=== PATIENT | female | born 1995 | race Caucasian/White ===

== ENCOUNTER 2023-11-04 02:17 | Emergency (ER) | payer OTHER, SELFPAY ==
[2023-11-04 02:49] LABS: HEMATOCRIT 42.7 % (36.0-47.0); HEMOGLOBIN 14.8 g/dl (12.0-15.5); MEAN CORPUSCULAR HEMOGLOBIN 34.3 pg (27.0-33.0); MEAN CORPUSCULAR HGB CONC 34.7 g/dl (32.0-36.5); MEAN CORPUSCULAR VOLUME 98.8 fl (80.0-96.0); PLATELET COUNT, AUTOMATED 327 10^3/uL (150-450); RED BLOOD COUNT 4.32 10^6/uL (4.00-5.40); WHITE BLOOD COUNT 11.4 10^3/uL (4.0-10.0)
[2023-11-04] MEDS: LORazepam 2 MG/ML 1ML VIAL IM STA (02:58)
[2023-11-04] MEDS: NICOTINE 21MG/24HR 1 EA TRANSDERMAL TD ONE (02:58)
[2023-11-04 03:09] LABS: AMPHETAMINES LEVEL URINE NEGATIVE (NEGATIVE); BARBITURATES URINE NEGATIVE (NEGATIVE); BENZODIAZEPINES URINE NEGATIVE (NEGATIVE); METHADONE URINE NEGATIVE (NEGATIVE); OPIATES URINE NEGATIVE (NEGATIVE); PHENCYCLIDINE URINE NEGATIVE (NEGATIVE)
[2023-11-04 03:11] LABS: ETHYL ALCOHOL (ETHANOL) 0.213 % (0.000-0.010)
[2023-11-04 03:12] LABS: CANNABINOIDS URINE POSITIVE (NEGATIVE); COCAINE METABOLITE URINE POSITIVE (NEGATIVE); SALICYLATE LEVEL < 3.0 MG/DL (<30)
[2023-11-04 03:13] LABS: ALBUMIN 4.6 G/DL (3.2-5.2); ALKALINE PHOSPHATASE 103 U/L (46-116); ALT/SGPT 21 U/L (7.0-40); AST/SGOT 21 U/L (<34); BILIRUBIN,DIRECT 0.2 MG/DL (<0.4); BILIRUBIN,TOTAL 0.4 MG/DL (0.3-1.2); BLOOD UREA NITROGEN 10 MG/DL (9-23); CALCIUM LEVEL 9.2 MG/DL (8.5-10.1); CARBON DIOXIDE LEVEL 26 MMOL/L (20-31); CHLORIDE LEVEL 108 MMOL/L (98-107); CREATININE FOR GFR 0.76 MG/DL (0.55-1.30); GLOMERULAR FILTRATION RATE > 60.0 (>60); GLUCOSE, FASTING 88 MG/DL (60-100); POTASSIUM SERUM 4.1 MMOL/L (3.5-5.1); SODIUM LEVEL 139 MMOL/L (136-145); TOTAL PROTEIN 7.7 G/DL (5.7-8.2)
[2023-11-04 03:15] LABS: THYROID STIMULATING HORMONE 3.686 uIU/ML (0.55-4.78)
[2023-11-04 10:16] VITALS: BP 110/73; TEMP 97.2; O2SAT 98
== END 2023-11-04 12:19 | disposition home or self-care (01) ==
LOC: M ED 02:17
DX: F19.14 Other psychoactive substance abuse with psychoactive substance-induced mood disorder (principal); F10.129 Alcohol abuse with intoxication, unspecified; F12.10 Cannabis abuse, uncomplicated; F14.10 Cocaine abuse, uncomplicated; F17.210 Nicotine dependence, cigarettes, uncomplicated; Y90.7 Blood alcohol level of 200-239 mg/100 ml
CPT/HCPCS: 36415; 80048; 80076; 80143; 80307; 82077; 84443; 85027; 96372; 99284; J2060

== ENCOUNTER → 2023-11-11 | Outpatient (CLI) | payer MEDICAID | LOC: M OUTALCOH 14:52 | PROVIDERS: ATTEND Psychiatry & Neurology Psychiatry | DX: F12.20 Cannabis dependence, uncomplicated (principal); F10.10 Alcohol abuse, uncomplicated; F17.200 Nicotine dependence, unspecified, uncomplicated ==

== ENCOUNTER 2023-11-26 14:49 | Outpatient (RCR) | payer MEDICAID | END 2023-11-30 | LOC: M OUTALCOH 14:49 | PROVIDERS: ATTEND Psychiatry & Neurology Psychiatry | DX: F12.20 Cannabis dependence, uncomplicated (principal); F10.10 Alcohol abuse, uncomplicated; F17.200 Nicotine dependence, unspecified, uncomplicated ==

== ENCOUNTER → 2023-12-31 | Outpatient (RCR) | payer MEDICAID | LOC: M OUTALCOH 12-02 16:00 | PROVIDERS: ATTEND Psychiatry & Neurology Psychiatry | DX: F12.20 Cannabis dependence, uncomplicated (principal); F10.10 Alcohol abuse, uncomplicated; F17.200 Nicotine dependence, unspecified, uncomplicated ==

== ENCOUNTER 2024-01-20 16:00 | Outpatient (RCR) | payer MEDICAID | END 2024-01-31 | LOC: M OUTALCOH 16:00 | PROVIDERS: ATTEND Psychiatry & Neurology Psychiatry | DX: F12.20 Cannabis dependence, uncomplicated (principal); F10.10 Alcohol abuse, uncomplicated; F17.200 Nicotine dependence, unspecified, uncomplicated ==

== ENCOUNTER 2024-02-13 15:00 | Outpatient (RCR) | payer MEDICAID | END 2024-03-01 | LOC: M OUTALCOH 15:00 | PROVIDERS: ATTEND Psychiatry & Neurology Psychiatry | DX: F12.20 Cannabis dependence, uncomplicated (principal); F10.10 Alcohol abuse, uncomplicated; F17.200 Nicotine dependence, unspecified, uncomplicated ==

== ENCOUNTER → 2024-03-05 | Outpatient (CLI) | payer MEDICAID | LOC: M OUTALCOH 14:01 | PROVIDERS: ATTEND Psychiatry & Neurology Psychiatry | DX: F12.20 Cannabis dependence, uncomplicated (principal); F10.10 Alcohol abuse, uncomplicated; F17.200 Nicotine dependence, unspecified, uncomplicated ==

== ENCOUNTER 2024-03-29 14:00 | Outpatient (RCR) | payer MEDICAID | END 2024-04-01 | LOC: M OUTALCOH 14:00 | PROVIDERS: ATTEND Psychiatry & Neurology Psychiatry | DX: F12.20 Cannabis dependence, uncomplicated (principal); F10.10 Alcohol abuse, uncomplicated; F17.200 Nicotine dependence, unspecified, uncomplicated ==

== ENCOUNTER 2024-04-21 14:00 | Outpatient (RCR) | payer MEDICAID | END 2024-05-01 | LOC: M OUTALCOH 14:00 | PROVIDERS: ATTEND Psychiatry & Neurology Psychiatry | DX: F12.20 Cannabis dependence, uncomplicated (principal); F10.10 Alcohol abuse, uncomplicated; F17.200 Nicotine dependence, unspecified, uncomplicated ==

== ENCOUNTER 2024-05-24 15:00 | Outpatient (RCR) | payer MEDICAID | END 2024-06-01 | LOC: M OUTALCOH 15:00 | PROVIDERS: ATTEND Psychiatry & Neurology Psychiatry | DX: F12.20 Cannabis dependence, uncomplicated (principal); F10.10 Alcohol abuse, uncomplicated; F17.200 Nicotine dependence, unspecified, uncomplicated ==

== ENCOUNTER 2024-06-28 16:00 | Outpatient (RCR) | payer MEDICAID | END 2024-07-02 | LOC: M OUTALCOH 16:00 | PROVIDERS: ATTEND Psychiatry & Neurology Psychiatry | DX: F12.20 Cannabis dependence, uncomplicated (principal); F10.10 Alcohol abuse, uncomplicated; F17.200 Nicotine dependence, unspecified, uncomplicated ==

== ENCOUNTER 2024-07-19 19:29 | Inpatient (IN) | payer MEDICAID ==
[~2024-07-19] VITALS: Ht 160 cm; Wt 62.1 kg
[2024-07-19 19:50] VITALS: BP 111/64
[2024-07-19] MEDS ORDERED: PRENTAB9 PO (19:52)
[2024-07-19] MEDS ORDERED: FAMO40TA3 PO (19:56)
[2024-07-19] MEDS ORDERED: NOXI1TAB PO (19:56)
[2024-07-19] MEDS ORDERED: CALC500C16 PO (19:56)
[2024-07-19] MEDS: PENICILLIN G POTASSIUM 5 MU IV 5 MU in DEXTROSE 5% (D5W) MINI-BAG PLU 100 ML IV STA (20:09)
[2024-07-19] MEDS ORDERED: METHYLERGONOVINE MALEATE 0.2MG/ML 1ML VIAL IM PRN (20:10)
[2024-07-19] MEDS ORDERED: TRANEXAMIC ACID INJection 1,000 MG in NS 100 ML IV PRN (20:10)
[2024-07-19] MEDS ORDERED: LIDOCAINE 1% MDV 20ML VIAL INFIL PRN (20:10)
[2024-07-19] MEDS ORDERED: OXYTOCIN DRIP 30 UNITS in IV 1 EA IV PRN (20:10)
[2024-07-19] MEDS ORDERED: CARBOPROST TROMETHAMINE 250 MCG/ML AMP IM PRN (20:10)
[2024-07-19] MEDS ORDERED: OXYTOCIN INJ 10UNITS/ML 1ML VIAL IM PRN (20:10)
[2024-07-19 20:32] LABS: HEMATOCRIT 31.2 % (36.0-47.0); HEMOGLOBIN 10.9 g/dl (12.0-15.5); MEAN CORPUSCULAR HEMOGLOBIN 33.3 pg (27.0-33.0); MEAN CORPUSCULAR HGB CONC 34.9 g/dl (32.0-36.5); MEAN CORPUSCULAR VOLUME 95.4 fl (80.0-96.0); PLATELET COUNT, AUTOMATED 274 10^3/uL (150-450); RED BLOOD COUNT 3.27 10^6/uL (4.00-5.40); WHITE BLOOD COUNT 15.5 10^3/uL (4.0-10.0)
[2024-07-19] MEDS ORDERED: BUPR2SUB SL (20:32)
[2024-07-19] MEDS ORDERED: HOME MED LIST COMPLETE! XX SCH (20:35)
[2024-07-19] MEDS: miSOPROStol 50MCG 1/2 TABLET PO SCH (20:38)
[2024-07-19 20:39] VITALS: BP 97/62
[2024-07-19 21:35] LABS: HIV 1&2 SCREEN NEGATIVE (NEGATIVE)
[2024-07-19 21:42] LABS: HEPATITIS C VIRUS ABY INDEX 0.11 INDEX (<0.8)
[2024-07-19 22:43] VITALS: BP 106/73
[2024-07-20] VITALS (33 sets, daily range): BP systolic 95–133; BP diastolic 58–78; O2SAT 100
[2024-07-20] MEDS: NICOTINE 21MG/24HR 1 EA TRANSDERMAL TD PRN (00:45)
[2024-07-20 03:37] LABS: AMPHETAMINES LEVEL URINE NEGATIVE (NEGATIVE); BARBITURATES URINE NEGATIVE (NEGATIVE); BENZODIAZEPINES URINE NEGATIVE (NEGATIVE); COCAINE METABOLITE URINE NEGATIVE (NEGATIVE); METHADONE URINE NEGATIVE (NEGATIVE); OPIATES URINE NEGATIVE (NEGATIVE); PHENCYCLIDINE URINE NEGATIVE (NEGATIVE)
[2024-07-20 03:56] LABS: CANNABINOIDS URINE POSITIVE (NEGATIVE)
[2024-07-20] MEDS: OXYTOCIN DRIP 30 UNITS in IV 1 EA IV SCH ×2 (05:07→10:51)
[2024-07-20] MEDS: PENICILLIN G POTASSIUM 5 MU IV 5 MU in DEXTROSE 5% (D5W) MINI-BAG PLU 100 ML IV STA (05:07)
[2024-07-20] MEDS: LR 1,000 ML IV SCH ×2 (05:07→10:15)
[2024-07-20] MEDS: LACTATED RINGER'S 1000 ML IV STA (05:49)
[2024-07-20] MEDS ORDERED: ONDANSETRON 4MG 2ML VIAL IV PRN ×2 (06:20→10:15)
[2024-07-20] MEDS ORDERED: NALOXONE INJ 0.4MG/1ML VIAL IV PRN (06:20)
[2024-07-20] MEDS ORDERED: LR 500 ML IV PRN (06:20)
[2024-07-20] MEDS ORDERED: ePHEDrine SULFATE 25 MG/5 ML(5MG/ML) SYRINGE IVP PRN (06:20)
[2024-07-20] MEDS ORDERED: EPIDURAL/PCA KEYS XX PRN (06:20)
[2024-07-20] MEDS ORDERED: diphenhydrAMINE 50MG/ML VIAL IV PRN (06:20)
[2024-07-20] MEDS: FENTANYL/ROPIVACAINE/NACL BAG 100 ML EPIDURAL SCH (06:36)
[2024-07-20] MEDS ORDERED: BUPR8SUB SL ×2 (07:56)
[2024-07-20] MEDS: BUPRENORPHINE HCL 8MG SUBINGUAL TABLET SL SCH ×2 (08:00→21:41)
[2024-07-20] MEDS: PEN G POT 3,000,000 UNIT/50 ML 3,000,000 UNIT in IV 1 EA IV SCH (08:46)
[2024-07-20] MEDS ORDERED: DIBUCAINE 1% OINTMENT 30GM TOP PRN (10:15)
[2024-07-20] MEDS ORDERED: PERCOCET 5MG/325MG TAB PO PRN ×2 (10:15)
[2024-07-20] MEDS ORDERED: IBUPROFEN 600MG TAB PO PRN (10:15)
[2024-07-20] MEDS ORDERED: ACETAMINOPHEN 325 MG TAB PO PRN (10:15)
[2024-07-20] MEDS ORDERED: ANUSOL HC CREAM 30GM TOP PRN (10:15)
[2024-07-20] MEDS ORDERED: MORPHINE 4 MG/ML 1ML VIAL IV PRN (10:15)
[2024-07-20] MEDS ORDERED: RHOGAM 300MCG (1500IU) INJ IM SCH (10:15)
[2024-07-20] MEDS ORDERED: METHYLERGONOVINE MALEATE 0.2 MG TAB PO PRN (10:15)
[2024-07-20] MEDS ORDERED: DOCUSATE SODIUM 100MG CAPSULE PO PRN (10:15)
[2024-07-20] MEDS: ACETAMINOPHEN 500 MG TAB PO PRN (11:06)
[2024-07-20] MEDS: IBUPROFEN 800 MG TAB PO PRN (21:36)
[2024-07-20] MEDS: PILL CUTTER 1 EACH XX PRN (21:40)
[2024-07-21 06:43] VITALS: BP 102/66; O2SAT 100
[2024-07-21 07:11] LABS: HEMATOCRIT 30.7 % (36.0-47.0); HEMOGLOBIN 10.4 g/dl (12.0-15.5); MEAN CORPUSCULAR HGB CONC 33.9 g/dl (32.0-36.5); MEAN CORPUSCULAR VOLUME 100.3 fl (80.0-96.0); PLATELET COUNT, AUTOMATED 283 10^3/uL (150-450); RED BLOOD COUNT 3.06 10^6/uL (4.00-5.40); WHITE BLOOD COUNT 13.5 10^3/uL (4.0-10.0)
[2024-07-21] MEDS: MEASLES,MUMPS,RUBELLA VACCINE INJ (MMR-II) SC.IMMUN ONE (09:08)
[2024-07-21] MEDS: PRENATAL VITAMINS CHEWABLE TABLET PO SCH (09:37)
[2024-07-21] MEDS: FLUZONE VACCINE TRIVALENT PF(2024-25) 0.5ML SYRINGE IM.IMMUN ONE (09:39)
== END 2024-07-21 16:10 | disposition home or self-care (01) | DRG 560 ==
LOC: M LDI 19:29 → M OBS 07-20 11:43
PROVIDERS: ADMIT Advanced Practice Midwife; ATTEND Advanced Practice Midwife
PROC: 10E0XZZ Delivery of Products of Conception, External Approach (ICD-10-PCS; principal; 2024-07-20)
PROC: 3E033VJ Introduction of Other Hormone into Peripheral Vein, Percutaneous Approach (ICD-10-PCS; 2024-07-20)
DX: O36.5990 Maternal care for other known or suspected poor fetal growth, unspecified trimester, not applicable or unspecified (principal); O99.324 Drug use complicating childbirth; Z37.0 Single live birth; Z3A.37 37 weeks gestation of pregnancy; F17.210 Nicotine dependence, cigarettes, uncomplicated; O99.334 Smoking (tobacco) complicating childbirth; F12.90 Cannabis use, unspecified, uncomplicated; O99.824 Streptococcus B carrier state complicating childbirth

== ENCOUNTER 2024-07-29 16:00 | Outpatient (RCR) | payer MEDICAID ==
[~2024-07-29 16:00] MED LIST: BUPR2SUB SL; BUPR8SUB SL; CALC500C16 PO; FAMO40TA3 PO; NOXI1TAB PO; PRENTAB9 PO
== END 2024-07-30 ==
LOC: M OUTALCOH 16:00
PROVIDERS: ATTEND Psychiatry & Neurology Psychiatry
DX: F12.20 Cannabis dependence, uncomplicated (principal); F10.10 Alcohol abuse, uncomplicated; F17.200 Nicotine dependence, unspecified, uncomplicated

== ENCOUNTER 2024-08-27 15:30 | Outpatient (RCR) | payer MEDICAID | END 2024-08-30 | LOC: M OUTALCOH 15:30 | PROVIDERS: ATTEND Psychiatry & Neurology Psychiatry | DX: F12.20 Cannabis dependence, uncomplicated (principal); F10.10 Alcohol abuse, uncomplicated; F17.200 Nicotine dependence, unspecified, uncomplicated ==

== ENCOUNTER → 2024-09-29 | Outpatient (RCR) | payer MEDICAID | LOC: M OUTALCOH 09-15 15:03 | PROVIDERS: ATTEND Psychiatry & Neurology Psychiatry | DX: F12.20 Cannabis dependence, uncomplicated (principal); F10.10 Alcohol abuse, uncomplicated; F17.200 Nicotine dependence, unspecified, uncomplicated ==

== ENCOUNTER → 2024-12-29 | Outpatient (CLI) | payer MEDICAID | LOC: M OUTALCOH 12:34 | PROVIDERS: ATTEND Psychiatry & Neurology Psychiatry | DX: F10.20 Alcohol dependence, uncomplicated (principal); F12.20 Cannabis dependence, uncomplicated; F14.10 Cocaine abuse, uncomplicated; F17.200 Nicotine dependence, unspecified, uncomplicated ==